=== PATIENT | female | born 1995 | race Caucasian/White ===

== ENCOUNTER 2017-10-14 16:21 | Outpatient (CLI) | END 2017-10-14 19:15 | disposition home or self-care (01) ==

== ENCOUNTER 2017-12-01 14:06 | Outpatient (CLI) | END 2017-12-01 16:25 | disposition home or self-care (01) ==

== ENCOUNTER 2018-01-15 15:58 | Inpatient (IN) | END 2018-01-16 17:33 | disposition home or self-care (01) | DRG 778 ==

== ENCOUNTER 2018-01-17 20:41 | Inpatient (IN) | END 2018-01-20 12:28 | disposition home or self-care (01) | DRG 775 ==